=== PATIENT | male | born 1995 | race Caucasian/White ===

== ENCOUNTER 2018-10-04 18:11 | Emergency (ER) | payer OTHER ==
[~2018-10-04] VITALS: Ht 160 cm; Wt 66.5 kg
[2018-10-04 18:16] VITALS: BP 144/78
--- NOTE | 2018-10-04 18:19 | NUR ---
PT AMBULATED TO ER BED 11
--- NOTE | 2018-10-04 18:40 | NUR ---
PT PRESENTS WITH ITCHING AND RASH ON THIGHS OF BOTH LEGS STARTING 5 DAYS AGO. PT BELIEVES CARPET MAY HAVE CAUSED IT. PT REPORTS IT BEING PAINFUL SOMETIMES, [place] AT NIGHT. CURRENT PAIN 09/21. VSS. NO S/S OF DISTRESS. A&O X4. WILL CONTINUE TO MONITOR.
--- NOTE | 2018-10-04 19:08 | NUR ---
report given to MANI Deras. vss. a&o x4. no s/s of distress. bed in lowest position.
--- NOTE | 2018-10-04 19:13 | NUR ---
ASSUMED CARE OF PT FROM MANI BROWN.
[2018-10-04 19:42] VITALS: BP 103/65
--- NOTE | 2018-10-04 19:43 | NUR ---
Patient discharged with v/s stable. Written and verbal after care instructions given and explained. Patient alert, oriented and verbalized understanding of instructions. Ambulatory with steady gait. All questions addressed prior to discharge. ID band removed. Patient advised to follow up with PMD. Rx of BENDRYL, PREDNISONE given. Patient educated on indication of medication including possible reaction and side effects. Opportunity to ask questions provided and answered.
== END 2018-10-04 19:42 | disposition home or self-care (01) ==
LOC: MED 18:11
DX: R21 Rash and other nonspecific skin eruption (principal)
CPT/HCPCS: 99283

== ENCOUNTER 2018-11-25 23:57 | Emergency (ER) | payer OTHER ==
[~2018-11-25] VITALS: Ht 160 cm; Wt 72.6 kg
[2018-11-26 00:05] VITALS: BP 140/74
--- NOTE | 2018-11-26 00:07 | NUR ---
TO LOBBY A/W BED AMBULATORY
[2018-11-26 00:41] LABS: APPEARANCE,URINE CLEAR (CLEAR); BILIRUBIN,URINE NEGATIVE (NEGATIVE); BLOOD, URINE NEGATIVE (NEGATIVE); COLOR,URINE YELLOW (YELLOW); LEUKOCYTE ESTERASE ,URINE NEGATIVE (NEGATIVE); NITRITE, URINE NEGATIVE (NEGATIVE); PH,URINE 7.5 (5.0-9.0); UGLUCOSE NEGATIVE (NEGATIVE)
[2018-11-26 00:51] LABS: RBC,URINE 0-5 /HPF (0-5); WBC,URINE 0-5 /HPF (0-5)
--- NOTE | 2018-11-26 00:58 | NUR ---
PT AMBULATED TO ER BED 06
--- NOTE | 2018-11-26 01:00 | NUR ---
23/M PRESENTS TO ED, C/O DYSURIA, X5 DAYS. REPORTS URINARY FREQUENCY. DENIES FEVER, N/V/D, CONSTIPATION. AOX4, SKIN NORMAL WARM AND DRY, RR EVEN AND UNLABORED. DENIES MED HX, RX OR OTC.
[2018-11-26] MEDS ORDERED: cefTRIAXone 250 MG in LIDOCAINE MPF 1% - 5 mL VIAL 0.9 ML IM ONE (01:15)
[2018-11-26] MEDS ORDERED: AZITHROMYCIN 250 MG TAB PO ONE (01:15)
[2018-11-26 01:59] VITALS: BP 151/84
--- NOTE | 2018-11-26 01:59 | NUR ---
Patient discharged with v/s stable. Written and verbal after care instructions given and explained. Patient verbalized understanding. Ambulatory with steady gait. All questions addressed prior to discharge. Advised to follow up with PMD.
[2018-11-29 06:12] LABS: CHLAMYDIA TRACHOMATIS AMP DNA Negative (Negative)
== END 2018-11-26 01:59 | disposition home or self-care (01) ==
LOC: MED 23:57
DX: N48.89 Other specified disorders of penis (principal)
CPT/HCPCS: 36415; 81001; 87086; 87491; 96372; 99283; J0696; J2001

== ENCOUNTER 2020-01-25 16:30 | Emergency (ER) | payer OTHER ==
[~2020-01-25] VITALS: Ht 167.6 cm; Wt 74.8 kg
[2020-01-25 16:41] VITALS: BP 143/79
--- NOTE | 2020-01-25 17:05 | NUR ---
c/o intermittent right testicular pain x 1 week, worsening today. states pain radiates to right groin. admits to some dysuria. denies penile discharge. denies unprotected sex. denies n/v/d or ab pain. He denies any injuries recently. pt alert and awake. ambulatory. pmh- denies
--- NOTE | 2020-01-25 17:08 | NUR ---
Field Reporter,MYSELF, accompanied patient for TESTICULAR EXAM WITH MEGAN PARDO.
[2020-01-25] MEDS ORDERED: KETOROLAC 30 MG/ML VIAL IM ONE (17:10)
--- NOTE | 2020-01-25 17:21 | NUR ---
TORADOL IM ADMINISTERD
--- NOTE | 2020-01-25 17:35 | NUR ---
US AT BEDSIDE
[2020-01-25 17:49] LABS: BASOPHILS # (AUTO) 0.1 K/uL (0.00-0.22); BASOPHILS % (AUTO) 1.3 % (0.0-2.0); EOSINOPHILS # (AUTO) 0.1 K/uL (0-0.4); EOSINOPHILS % (AUTO) 1.8 % (0.0-4.0); HEMATOCRIT 49.1 % (36-52); HEMOGLOBIN 16.8 g/dL (12.0-18.0); LYMPHOCYTES # (AUTO) 2.2 K/uL (2.0-11.5); LYMPHOCYTES % (AUTO) 34.3 % (20.5-51.1); MEAN CORPUSCULAR HEMOGLOBIN 29 pg (27-31); MEAN CORPUSCULAR HGB CONC 34 g/dL (33-37); MONOCYTES # (AUTO) 0.4 K/uL (0.8-1.0); MONOCYTES % (AUTO) 5.9 % (1.7-9.3); NEUTROPHILS # (AUTO) 3.6 K/uL (1.8-7.7); NEUTROPHILS % (AUTO) 56.7 % (42.2-75.2); PLATELET COUNT (AUTO) 265 K/uL (140-450); RED BLOOD CELL COUNT(AUTO) 5.77 MIL/uL (4.20-6.10); RED CELL DISTRIBUTION WIDTH 12.8 % (11.6-13.7); WHITE BLOOD COUNT (AUTO) 6.4 K/uL (4.8-10.8)
[2020-01-25 18:01] LABS: ALBUMIN 4.5 g/dL (3.4-5.0); ANION GAP 12.7 (8-16); CARBON DIOXIDE 26.4 mmol/L (21-32); CREATININE 0.9 mg/dL (0.6-1.3); POTASSIUM 4.1 mmol/L (3.5-5.1); TOTAL BILIRUBIN 0.5 mg/dL (0.0-1.0)
--- NOTE | 2020-01-25 18:22 | NUR ---
NADR, PAIN 07/24
[2020-01-25 18:46] VITALS: BP 143/79
[2020-01-27 06:08] LABS: CHLAMYDIA TRACHOMATIS AMP DNA Negative (Negative)
== END 2020-01-25 18:46 | disposition home or self-care (01) ==
LOC: MED 16:30
DX: N50.89 Other specified disorders of the male genital organs (principal); R10.30 Lower abdominal pain, unspecified; R30.0 Dysuria
CPT/HCPCS: 36415; 76870; 80053; 81002; 85025; 87491; 96372; 99284; J1885; Q0092

== ENCOUNTER 2023-11-27 14:19 | Emergency (ER) | payer MEDICAID, OTHER ==
[~2023-11-27] VITALS: Ht 167.6 cm; Wt 74.8 kg
[2023-11-27 14:49] VITALS: BP 139/79; PULSE 87; RESP 18; TEMP 97.4; O2SAT 99
[2023-11-27] MEDS ORDERED: IBUP-2213 PO (16:53)
[2023-11-27] MEDS ORDERED: HYDR-2734 TP (16:53)
[2023-11-27] MEDS ORDERED: DOCU-299 PO (16:53)
== END 2023-11-27 17:14 | disposition home or self-care (01) ==
LOC: MED 14:19
DX: K62.89 Other specified diseases of anus and rectum (principal); R03.0 Elevated blood-pressure reading, without diagnosis of hypertension
CPT/HCPCS: 99283